=== PATIENT | male | born 1975 | race Caucasian/White ===

== ENCOUNTER 2017-05-10 14:36 | Emergency (ER) | payer OTHER ==
[2017-05-10] MEDS ORDERED: Ibuprofen TAB* 800 MG PO ONE (14:57)
[2017-05-10] MEDS ORDERED: oxyCODONE/Acetamin 5/325 MG* TAB PO ONE (14:57)
[2017-05-10] MEDS ORDERED: Lidocaine 1%* 5 ML VIAL INJ ONE (14:57)
[2017-05-10] MEDS ORDERED: Tetan/Diph/Pertus SYR(Tdap)* 0.5 ML SYR(BOOSTRIX) use SYR IM ONE (14:57)
--- NOTE | 2017-05-10 15:42 | ED ---
Upper Extremity Pain - HPI Summary HPI Summary: [id number] patient here with right thumb injury prior to arrival. Admits he was using a table saw when this slipped and cut the tip of his right thumb off. Bleeding. Try to wash it was painful so wrapped up and came here. Denies numbness or weakness. Unsure of last tetanus vaccine. Denies any other pain or disability and other fingers hand or wrist. - History of Current Complaint Chief Complaint: EDLacSutureRecheck Stated Complaint: RT THUMB INJURY Time Seen by Provider: 05/10/17 14:57 Hx Obtained From: Patient, Family/Favor Maker - - Allergies/Home Medications Allergies/Adverse Reactions: Allergies Allergy/AdvReac Type Severity Reaction Status Date / Time No Known Allergies Allergy Verified 05/10/17 14:43 PMH/Surg Hx/FS Hx/Imm Hx Previously Healthy: Yes Endocrine/Hematology History: Denies: Hx Anticoagulant Therapy, Hx Blood Disorders, Autoimmune Disease - Immunization History Immunizations Up to Date: Unable to Obtain/Confirm Infectious Disease History: No Infectious Disease History: Denies: Hx of Known/Suspected MRSA, Traveled Outside the in Last 30 Days - Family History Known Family History: Positive: None - Social History Occupation: Employed Full-time - self-employed Alcohol Use: Daily Substance Use Type: Reports: Marijuana - daily for insomnia, anxiety THAT when he is Hx Tobacco Use: Yes Smoking Status (MU): Current Every Day Smoker Review of Systems Constitutional: Negative Positive: no symptoms reported Positive: Arthralgia Skin: Other - lac Rt thumb Neurological: Negative Psychological: Normal All Other Systems Reviewed And Are Negative: Yes Physical Exam Triage Information Reviewed: Yes Vital Signs On Initial Exam: Initial Vitals Temp Pulse Resp BP Pulse Ox 97.1 F 90 14 127/92 94 05/10/17 14:44 05/10/17 14:44 05/10/17 14:44 05/10/17 14:44 05/10/17 14:44 Vital Signs Reviewed: Yes Appearance: Positive: Well-Appearing, Well-Nourished, Pain Distress - moderate Skin: Positive: Warm, Skin Color Reflects Adequate Perfusion Eyes: Positive: EOMI ENT: Positive: Hearing grossly normal Respiratory/Lung Sounds: Positive: Breath Sounds Present Cardiovascular: Positive: Pulses are Symmetrical in both Upper and Lower Extremities Musculoskeletal: Positive: Strength/ROM Intact, Pain @ - distal area TTP Neurological: Positive: Normal, Sensory/Motor Intact, Alert, Oriented to Person Place, Time, CN Intact II-III Psychiatric: Positive: Anxious - but pleasant and cooperative Procedures - Procedure Summary Procedure Summary: Rt thumb digital block - cleaned areas with alochol x 3 - injected 5cc of 1% lidocaine - anesthesia attained - pt tolerated well Wound is avulsion of skin of distal tip of RT thumb - nail intact and attached to bed - no FB observed Soaked thumb in hibaclens/water solution Dried and dressed w/ xeroform dressing + sterile gauze + DELPHINE wrap - hemodynamically stable - pt tolerated well Diagnostics - Vital Signs Vital Signs Temp Pulse Resp BP Pulse Ox 05/10/17 15:08 20 05/10/17 14:44 97.1 F 90 14 127/92 94 - Laboratory Lab Statement: Any lab studies that have been ordered have been reviewed, and results considered in the medical decision making process. Re-Evaluation - Re-Evaluation First Eval Change: Improved - s/p digital block Course/Dx - Diagnoses Provider Diagnoses: Avulsion of skin of right thumb, Open fracture of tuft of distal phalanx of right thumb Discharge - Sign-Out/Discharge Documenting (check all that apply): Discharge - Discharge Plan Condition: Stable Disposition: HOME Prescriptions: Cephalexin CAP* [Keflex CAP*] 500 mg PO QID #40 cap HYDROcodone/ACETAMIN 5-325 MG* [[place] 5-325 TAB*] 1 tab PO Q6H PRN #20 tab MDD 4 PRN Reason: Pain Ibuprofen TAB* [Motrin TAB* 600 MG] 600 mg PO Q6H PRN #20 tab PRN Reason: Pain Patient Education Materials: Skin Avulsion (ED), Finger Fracture (ED) Referrals: Omega Tatum MD [Medical Doctor] - Additional Instructions: Keep bandage clean, dry and in place for the next 48 hours. Follow up with hand specialist on Thursday for wound recheck and bandage removal. Call tomorrow to schedule an appointment. In the meantime, rest, ice, elevate and take ibuprofen alternating with [place] for pain relief - take these medications as directed. Complete antibiotic as directed. *If you develop intractable pain despite recommendations, fevers or chills, streaking up her hand, return to the emergency department - Billing Disposition and Condition Condition: STABLE Disposition: HOME
--- NOTE | 2017-05-10 16:13 | RAD ---
HISTORY: Laceration COMPARISONS: None VIEWS: 3, Frontal, lateral, and oblique views of the first digit of the right hand FINDINGS: BONE DENSITY: Normal. BONES: There has been partially amputation of the tuft of the distal phalanx of the first digit with a nondisplaced fracture through the tuft of the distal phalanx of the first digit. JOINTS: There is no arthropathy. ALIGNMENT: There is no dislocation. SOFT TISSUES: There is soft tissue irregularity consistent with laceration. OTHER FINDINGS: None. IMPRESSION: PARTIAL AMPUTATION AND NONDISPLACED FRACTURE OF THE TUFT OF THE DISTAL PHALANX OF THE FIRST DIGIT
[2017-05-10 16:43] VITALS: BP 118/85
[2017-05-10] MEDS ORDERED: C ephalexin 500MG #6 TAB PREPK 500 MG CAP PO ONE (19:19)
== END 2017-05-10 16:41 | disposition home or self-care (01) ==
LOC: ED 14:36
DX: S62.521B Displaced fracture of distal phalanx of right thumb, initial encounter for open fracture (principal); W31.2XXA Contact with powered woodworking and forming machines, initial encounter; Y92.9 Unspecified place or not applicable; F17.210 Nicotine dependence, cigarettes, uncomplicated; Z23 Encounter for immunization
CPT/HCPCS: 90471; 90715; 99282; A9270-GY